=== PATIENT | female | born 1965 | race African-American/Black ===

== ENCOUNTER → 2021-07-25 | Day surgery (SDC) | payer MEDICARE, MEDICAID ==
[~2021-07-25] MED LIST: LIDOCAINE HCL/PF 1% 10 MG/ML 5ML VIAL ONE; SODIUM BICARBONATE 4% (2.4MEQ) 5ML VIAL IV ONE
== END | disposition home or self-care (01) ==
LOC: RAD 09:30
PROVIDERS: ATTEND Internal Medicine Endocrinology, Diabetes & Metabolism
DX: E04.1 Nontoxic single thyroid nodule (principal); Z79.899 Other long term (current) drug therapy
CPT/HCPCS: 10005; 88172; 88173; J3490